=== PATIENT | male | born 1965 | race Caucasian/White ===

== ENCOUNTER 2016-06-14 14:15 | Emergency (ER) | payer BC ==
[2016-06-14] MEDS ORDERED: FAMOTIDINE 20 MG/2 ML VIAL IV STA (15:23)
[2016-06-14] MEDS ORDERED: diphenhydrAMINE 50 MG/ML 1 ML VIAL IVP STA (15:23)
[2016-06-14] MEDS ORDERED: SODIUM CHLORIDE 0.9% 1,000 ML IV STA ×2 (15:23)
[2016-06-14] MEDS ORDERED: RX INFO: IV CONTRAST WAS GIVEN 1 EACH MISC MISCELLANE PRN (15:38)
--- NOTE | 2016-06-14 15:38 | ED ---
General Adult HPI - General Chief complaint: Shortness of Breath Stated complaint: Diff breathing Time Seen by Provider: 06/14/16 15:08 Source: patient, RN notes reviewed Mode of arrival: ambulatory Limitations: no limitations - History of Present Illness Initial comments: 50-year-old male who presents emergency room today with multiple complaints. Patient does admit that he wrote a rash week ago was started on steroids. He does admit to being a diabetic currently on metformin. He states noticed blood sugars been running high last 3 days. Patient also admits that he's had increased cough the last 2 days. He does admit to a history of blood clots. States she's had similar symptoms to cough congestion with blood clots. States currently taking also. States he has had a blood clot while being on blood thinners in the past. Patient also admits to blurry vision over the last 3 days. States that he noticed that he cannot see clearly as he usually does. Patient denies any other complaints. Patient denies any recent fever, chills, back pain, abdominal pain, nausea or vomiting, numbness or tingling, dysuria or hematuria, constipation or diarrhea, headaches or visual changes, or any other complaints. - Related Data Home Medications Medication Instructions Recorded Confirmed Ascorbic Acid [Vitamin C] 500 mg PO DAILY 06/14/16 06/14/16 Cyanocobalamin (Vitamin B-12) 1,000 mcg PO DAILY 06/14/16 06/14/16 [Vitamin B-12] Methylphenidate HCl [Concerta] 72 mg PO DAILY 06/14/16 06/14/16 Rivaroxaban [Xarelto] 20 mg PO DAILY 06/14/16 06/14/16 Venlafaxine HCl [Effexor XR] 75 mg PO DAILY 06/14/16 06/14/16 amLODIPine/VALSARTAN [Exforge 1 tab PO DAILY 06/14/16 06/14/16 10-320 mg Tablet] metFORMIN HCL 1,000 mg PO BID 06/14/16 06/14/16 Previous Rx's Medication Instructions Recorded Hydrocortisone Cream 1 applic TOPICAL TID #1 cream..g. 06/14/16 [Hydrocortisone 1% Cream] Allergies Allergy/AdvReac Type Severity Reaction Status Date / Time No Known Allergies Allergy Verified 06/14/16 15:16 Review of Systems ROS Statement: Those systems with pertinent positive or pertinent negative responses have been documented in the HPI. ROS Other: All systems not noted in ROS Statement are negative. Past Medical History Past Medical History: Diabetes Mellitus Additional Past Medical History / Comment(s): blood clots History of Any Multi-Drug Resistant Organisms: None Reported Past Surgical History: Orthopedic Surgery Past Psychological History: Anxiety, Depression Smoking Status: Never smoker Past Alcohol Use History: None Reported Past Drug Use History: None Reported General Exam - General Exam Comments Initial Comments: General: The patient is awake and alert, in no distress, and does not appear acutely ill. Eye: Pupils are equal, round and reactive to light, extra-ocular movements are intact. No nystagmus. There is normal conjunctiva bilaterally. No signs of icterus. Visual acuity performed by nursing staff and is 20/30 and 20/40. Ears, nose, mouth and throat: There are moist mucous membranes and no oral lesions. Neck: The neck is supple, there is no tenderness or JVD. Cardiovascular: Tachycardic. No murmur, rub or gallop is appreciated. Respiratory: Lungs are clear to auscultation, respirations are non-labored, breath sounds are equal. No wheezes, stridor, rales, or rhonchi. Gastrointestinal: Soft, non-distended, non-tender abdomen without masses or organomegaly noted. There is no rebound or guarding present. No CVA tenderness. Bowel sounds are unremarkable. Musculoskeletal: Normal ROM, no tenderness. Strength 5/5. Sensation intact. Pulses equal bilaterally 2+. Neurological: A&O x 3. CN II-XII intact, There are no obvious motor or sensory deficits. Coordination appears grossly intact. Speech is normal. Skin: Skin is warm and dry and no rashes or lesions are noted. Psychiatric: Cooperative, appropriate mood & affect, normal judgment. Limitations: no limitations Course Vital Signs 06/14/16 06/14/16 14:22 16:36 Temperature 98.6 F Pulse Rate 125 H 101 H Respiratory 20 18 Rate Blood Pressure 140/79 173/98 O2 Sat by Pulse 95 98 Oximetry EKG Findings - EKG Comments: EKG Findings:: EKG performed at 1544: Shows sinus tachycardia 113 bpm. GA interval 140. QRS 96. QT/QTC 330/452. No acute ST changes. Medical Decision Making - Medical Decision Making Patient reexamined at this time shows no signs of distress. His labs are been reviewed. CT of the chest shows no evidence of PE. Does show a ascending aortic aneurysm measuring approximately 4 mm in size. Patient updated of the results. Patient did present with elevated blood sugars. He has been on steroids due to a intact dermatitis. Patient advised that steroids will causes blood sugars to rise. At this time case was discussed in detail with attending physician . Patient will be discharged home he'll be given a prescription for topical steroid to use as well to some these areas as he has had improvement with the oral steroids. Patient is advised follow-up with his family doctor tomorrow for further evaluation of ascending aortic aneurysm. He is advised return to emergency room if any symptoms increase or worsen or for any - Lab Data Result diagrams: 06/14/16 15:41 06/14/16 15:41 Lab Results 06/14/16 06/14/16 06/14/16 Range/Units 15:41 15:41 15:41 WBC 12.6 H (3.8-10.6) k/uL RBC 5.37 (4.30-5.90) m/uL Hgb 15.8 (13.0-17.5) gm/dL Hct 46.8 (39.0-53.0) % MCV 87.0 (80.0-100.0) fL MCH 29.4 (25.0-35.0) pg MCHC 33.8 (31.0-37.0) g/dL RDW 14.1 (11.5-15.5) % Plt Count 415 (150-450) k/uL Neutrophils % 79 % Lymphocytes % 13 % Monocytes % 5 % Eosinophils % 1 % Basophils % 1 % Neutrophils # 9.9 H (1.3-7.7) k/uL Lymphocytes # 1.6 (1.0-4.8) k/uL Monocytes # 0.6 (0-1.0) k/uL Eosinophils # 0.2 (0-0.7) k/uL Basophils # 0.1 (0-0.2) k/uL PT (9.0-12.0) sec INR (<1.1) APTT (22.0-30.0) sec Sodium 139 (137-145) mmol/L Potassium 4.5 (3.5-5.1) mmol/L Chloride 101 (98-107) mmol/L Carbon Dioxide 24 (22-30) mmol/L Anion Gap 14 mmol/L BUN 22 H (9-20) mg/dL Creatinine 0.75 (0.66-1.25) mg/dL Est GFR (MDRD) Af Amer >60 (>60 ml/min/1.73 sqM) Est GFR (MDRD) Non-Af >60 (>60 ml/min/1.73 sqM) Glucose 284 H (74-99) mg/dL Calcium 9.9 (8.4-10.2) mg/dL Total Bilirubin 0.5 (0.2-1.3) mg/dL AST 26 (17-59) U/L ALT 55 (21-72) U/L Alkaline Phosphatase 64 (38-126) U/L Total Creatine Kinase 87 (55-170) U/L CK-MB (CK-2) 1.7 (0.0-2.4) ng/mL CK-MB (CK-2) Rel Index 2.0 Troponin I <0.012 (0.000-0.034) ng/mL Total Protein 7.5 (6.3-8.2) g/dL Albumin 4.4 (3.5-5.0) g/dL Acetone, Qual Negative (Negative) 06/14/16 Range/Units 15:41 WBC (3.8-10.6) k/uL RBC (4.30-5.90) m/uL Hgb (13.0-17.5) gm/dL Hct (39.0-53.0) % MCV (80.0-100.0) fL MCH (25.0-35.0) pg MCHC (31.0-37.0) g/dL RDW (11.5-15.5) % Plt Count (150-450) k/uL Neutrophils % % Lymphocytes % % Monocytes % % Eosinophils % % Basophils % % Neutrophils # (1.3-7.7) k/uL Lymphocytes # (1.0-4.8) k/uL Monocytes # (0-1.0) k/uL Eosinophils # (0-0.7) k/uL Basophils # (0-0.2) k/uL PT 10.5 (9.0-12.0) sec INR 1.0 (<1.1) APTT 24.4 (22.0-30.0) sec Sodium (137-145) mmol/L Potassium (3.5-5.1) mmol/L Chloride (98-107) mmol/L Carbon Dioxide (22-30) mmol/L Anion Gap mmol/L BUN (9-20) mg/dL Creatinine (0.66-1.25) mg/dL Est GFR (MDRD) Af Amer (>60 ml/min/1.73 sqM) Est GFR (MDRD) Non-Af (>60 ml/min/1.73 sqM) Glucose (74-99) mg/dL Calcium (8.4-10.2) mg/dL Total Bilirubin (0.2-1.3) mg/dL AST (17-59) U/L ALT (21-72) U/L Alkaline Phosphatase (38-126) U/L Total Creatine Kinase (55-170) U/L CK-MB (CK-2) (0.0-2.4) ng/mL CK-MB (CK-2) Rel Index Troponin I (0.000-0.034) ng/mL Total Protein (6.3-8.2) g/dL Albumin (3.5-5.0) g/dL Acetone, Qual (Negative) Disposition Clinical Impression: Contact dermatitis, Steroid-induced hyperglycemia, Aortic aneurysm Disposition: HOME SELF-CARE Condition: Good Instructions: Contact Dermatitis (ED) Additional Instructions: Please use Benadryl one to 2 tabs every 6 hours along with previously prescribed medications and topical steroid. Please follow-up with family doctor in the next 2 days for further evaluation of rash and aortic aneurysm as discussed. Please return to emergency room if the symptoms increase or worsen or for any other concerns. Prescriptions: Hydrocortisone Cream [Hydrocortisone 1% Cream] 1 applic TOPICAL TID #1 cream..g. Time of Disposition: 17:55
[2016-06-14 15:53] LABS: Basophils # (A) 0.1 k/uL (0-0.2); Basophils % (A) 1 %; CH 29.6; CHCM 34.2; Eosinophils # (A) 0.2 k/uL (0-0.7); Eosinophils % (A) 1 %; HCT 46.8 % (39.0-53.0); HDW 2.53; HGB 15.8 gm/dL (13.0-17.5); Luc # (Auto) 0.23; Luc % (Auto) 2; Lymphocytes # (A) 1.6 k/uL (1.0-4.8); Lymphocytes % (A) 13 %; MCH 29.4 pg (25.0-35.0); MCHC 33.8 g/dL (31.0-37.0); Mean Platelet Volume 6.3; Monocytes # (A) 0.6 k/uL (0-1.0); Monocytes % (A) 5 %; Neutrophils # (A) 9.9 k/uL (1.3-7.7); Neutrophils % (A) 79 %; RBC 5.37 m/uL (4.30-5.90); RDW 14.1 % (11.5-15.5); WBC 12.6 k/uL (3.8-10.6); WBC (Perox) 12.15
[2016-06-14 16:01] LABS: Partial Thromboplastin Time 24.4 sec (22.0-30.0); Prothrombin Time 10.5 sec (9.0-12.0)
[2016-06-14 16:05] LABS: ALT 55 U/L (21-72); AST 26 U/L (17-59); Alkaline Phosphatase 64 U/L (38-126); Anion Gap 14 mmol/L; Blood Urea Nitrogen 22 mg/dL (9-20); Calcium 9.9 mg/dL (8.4-10.2); Carbon Dioxide 24 mmol/L (22-30); Chloride 101 mmol/L (98-107); Glucose 284 mg/dL (74-99); Non-African American GFR(MDRD) >60 (>60 ml/min/1.73 sqM); Potassium 4.5 mmol/L (3.5-5.1); Sodium 139 mmol/L (137-145); Total Bilirubin 0.5 mg/dL (0.2-1.3); Total Protein 7.5 g/dL (6.3-8.2)
[2016-06-14 16:07] LABS: Creatine Kinase 87 U/L (55-170)
[2016-06-14 16:20] LABS: Creatine Kinase MB 1.7 ng/mL (0.0-2.4); Troponin I <0.012 ng/mL (0.000-0.034)
[2016-06-14 16:37] VITALS: RESP 18
--- NOTE | 2016-06-14 17:29 | CT ---
EXAMINATION TYPE: CT angio chest DATE OF EXAM: 06/14/2016 5:16 PM COMPARISON: CTA chest 14 October 2011 HISTORY: Chest pain and shortness of breath CT DLP: 989 mGycm Automated exposure control for dose reduction was used. CONTRAST: CTA scan of the thorax is performed with IV Contrast, patient injected with 100 mL of Omnipaque 350, pulmonary embolism protocol. MIP images are created and reviewed. 3D reconstructed images are creat ed on an independent workstation and reviewed. FINDINGS: LUNGS: The lungs are grossly clear, there is no concerning parenchymal mass or nodule identified. T here is no pleural effusion or pneumothorax seen. The tracheobronchial tree is patent. AORTA: Ascending aorta measures 4 cm, pulmonary arteries dilated at 3.6 cm. Correlate for pulmonary artery hypertension, follow-up aortic aneurysm recommended. MEDIASTINUM: There is satisfactory enhancement of the pulmonary artery and its branches, there is no CT evidence for pulmonary embolism. There are no greater than 1 cm hilar or mediastinal lymph nodes. No pericardial effusion is seen. OTHER: No additional significant abnormality is seen. IMPRESSION: AORTIC ANEURYSM, CONSIDER PULMONARY ARTERY HYPERTENSION
[2016-06-14 18:23] VITALS: BP 142/95; PULSE 66; TEMP 97.8
[2016-06-14 21:51] LABS: Glucose,Whole Blood 322 mg/dL (75-99)
== END 2016-06-14 17:57 | disposition home or self-care (01) ==
LOC: EC 14:15
DX: L25.9 Unspecified contact dermatitis, unspecified cause (principal); E09.65 Drug or chemical induced diabetes mellitus with hyperglycemia; Z79.84 Long term (current) use of oral hypoglycemic drugs; I71.2 Thoracic aortic aneurysm, without rupture; R05 Cough; R09.81 Nasal congestion; H53.8 Other visual disturbances; F32.9 Major depressive disorder, single episode, unspecified; F41.9 Anxiety disorder, unspecified; Z79.899 Other long term (current) drug therapy
CPT/HCPCS: 36415; 93005; 80053; 82550; 82553; 82009; 84484; 85025; 85610; 85730; 71275; 99285; 96374; 96375; 96361; J1200; Q9967

== ENCOUNTER 2021-08-15 12:55 | Emergency (ER) | payer MEDICARE ==
[2021-08-15 13:10] VITALS: BP 127/71; PULSE 80; RESP 16; TEMP 98
[2021-08-15] MEDS ORDERED: SODIUM CHLORIDE 0.9% 1,000 ML IV STA (13:24)
--- NOTE | 2021-08-15 13:28 | ED ---
General Adult HPI - General Chief complaint: Dizziness Stated complaint: Lightheadedness Time Seen by Provider: 08/15/21 13:19 Source: patient, RN notes reviewed Mode of arrival: ambulatory Limitations: no limitations - History of Present Illness Initial comments: Patient is a pleasant 55-year-old male presenting to the emergency department with lightheadedness. 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 Patient was not drinking a lot of fluids at that time. Patient was a little bit lightheaded afterwards and did drink some water afterwards. This morning patient did have an episode where he bent over he felt dizzy. Patient states he has not had any symptoms since that time. Patient states he is actually feeling fine at this time. No confusion. No weakness. No history of similar symptoms previously. Patient offered medication for dizziness however he does not feel that it is necessary. - Related Data Home Medications Medication Instructions Recorded Confirmed Rivaroxaban [Xarelto] 20 mg PO DAILY 06/14/16 10/31/19 Dulaglutide [Trulicity] 1.5 mg SQ TOUSSAINT 10/31/19 10/31/19 Escitalopram [Lexapro] 20 mg PO DAILY 10/31/19 10/31/19 Insulin Degludec [Tresiba 64 unit SQ HS 10/31/19 10/31/19 Flextouch U-200 Pen] Olmesartan/Hydrochlorothiazide 1 tab PO HS 10/31/19 10/31/19 [Olmesartan/Hydrochlorothiazide 40-25 MG] amLODIPine [Norvasc] 10 mg PO HS 10/31/19 10/31/19 Previous Rx's Medication Instructions Recorded Aspirin 81 mg PO DAILY #30 chew 11/02/19 Atorvastatin [Lipitor] 40 mg PO HS #30 tablet 11/02/19 Clopidogrel [Plavix] 75 mg PO DAILY #20 tab 11/02/19 Allergies Allergy/AdvReac Type Severity Reaction Status Date / Time No Known Allergies Allergy Verified 08/15/21 13:08 Review of Systems ROS Statement: Those systems with pertinent positive or pertinent negative responses have been documented in the HPI. ROS Other: All systems not noted in ROS Statement are negative. Constitutional: Denies: fever Eyes: Denies: eye pain ENT: Denies: ear pain Respiratory: Denies: cough, dyspnea Cardiovascular: Denies: chest pain Endocrine: Denies: fatigue Gastrointestinal: Denies: abdominal pain Genitourinary: Denies: dysuria Musculoskeletal: Denies: back pain Skin: Denies: rash Neurological: Denies: headache, weakness, confusion Past Medical History Past Medical History: Diabetes Mellitus, Deep Vein Thrombosis (DVT), Pulmonary Embolus (PE) Additional Past Medical History / Comment(s): blood clots History of Any Multi-Drug Resistant Organisms: None Reported Past Surgical History: Orthopedic Surgery Additional Past Surgical History / Comment(s): L ankle fractures/fusion, R heel shattered/fused, colonoscopy. Past Anesthesia/Blood Transfusion Reactions: No Reported Reaction Additional Past Anesthesia/Blood Transfusion Reaction / Comment(s): Pt has clausterphobia. Past Psychological History: Anxiety, Depression Smoking Status: Never smoker Past Alcohol Use History: None Reported Past Drug Use History: None Reported - Past Family History Father History Unknown: Yes Additional Family Medical History / Comment(s): Pt does not know father's hx-raised by grandparents. Mother History Unknown: Yes Additional Family Medical History / Comment(s): Pt does not know mother's hx- raised by grandparents. Grandparents Family Medical History: No Reported History Additional Family Medical History / Comment(s): Grandparents were healthy General Exam Limitations: no limitations General appearance: alert, in no apparent distress Head exam: Present: normocephalic Eye exam: Present: normal appearance, PERRL, EOMI ENT exam: Present: normal oropharynx Neck exam: Present: normal inspection Respiratory exam: Present: normal lung sounds bilaterally Cardiovascular Exam: Present: regular rate, normal rhythm Expanded Peripheral pulses: 2+: Radial (R), Radial (L), Posterior Tibialis (R), Posterior Tibialis (L) GI/Abdominal exam: Present: soft. Absent: tenderness Extremities exam: Present: normal inspection. Absent: pedal edema, calf tenderness Neurological exam: Present: alert, oriented X3, CN II-XII intact. Absent: motor sensory deficit Psychiatric exam: Present: normal affect, normal mood Skin exam: Present: normal color Course Vital Signs 08/15/21 13:08 Temperature 98 F Pulse Rate 80 Respiratory 16 Rate Blood Pressure 127/71 O2 Sat by Pulse 98 Oximetry EKG Findings - EKG Comments: EKG Findings:: Sinus bradycardia 59. SC 173. QRS 124. QT 434. QTC 433. Left axis. Normal QRS. No acute ST change. Medical Decision Making - Medical Decision Making Patient reevaluated and resting comfortably in bed, patient remained symptom- free. Patient family updated on results and plan. Patient will demonstrate ability to ambulate without symptoms prior to discharge - Lab Data Result diagrams: 08/15/21 13:14 08/15/21 13:14 Lab Results 08/15/21 08/15/21 08/15/21 Range/Units 13:14 13:14 13:14 WBC 7.1 (3.8-10.6) k/uL RBC 4.74 (4.30-5.90) m/uL Hgb 13.9 (13.0-17.5) gm/dL Hct 41.8 (39.0-53.0) % MCV 88.3 (80.0-100.0) fL MCH 29.4 (25.0-35.0) pg MCHC 33.3 (31.0-37.0) g/dL RDW 13.0 (11.5-15.5) % Plt Count 310 (150-450) k/uL MPV 7.0 Neutrophils % 64 % Lymphocytes % 23 % Monocytes % 6 % Eosinophils % 3 % Basophils % 1 % Neutrophils # 4.6 (1.3-7.7) k/uL Lymphocytes # 1.6 (1.0-4.8) k/uL Monocytes # 0.4 (0-1.0) k/uL Eosinophils # 0.2 (0-0.7) k/uL Basophils # 0.1 (0-0.2) k/uL PT 12.8 H (9.0-12.0) sec INR 1.2 H (<1.2) Sodium 139 (137-145) mmol/L Potassium 4.3 (3.5-5.1) mmol/L Chloride 104 (98-107) mmol/L Carbon Dioxide 26 (22-30) mmol/L Anion Gap 9 mmol/L BUN 24 H (9-20) mg/dL Creatinine 0.96 (0.66-1.25) mg/dL Est GFR (CKD-EPI)AfAm >90 (>60 ml/min/1.73 sqM) Est GFR (CKD-EPI)NonAf 88 (>60 ml/min/1.73 sqM) Glucose 184 H (74-99) mg/dL Plasma Lactic Acid Tesfaye (0.7-2.0) mmol/L Calcium 9.0 (8.4-10.2) mg/dL Total Bilirubin 0.7 (0.2-1.3) mg/dL AST 52 (17-59) U/L ALT 52 H (4-49) U/L Alkaline Phosphatase 54 (38-126) U/L Troponin I (0.000-0.034) ng/mL Total Protein 7.4 (6.3-8.2) g/dL Albumin 4.3 (3.5-5.0) g/dL 08/15/21 08/15/21 Range/Units 13:14 13:14 WBC (3.8-10.6) k/uL RBC (4.30-5.90) m/uL Hgb (13.0-17.5) gm/dL Hct (39.0-53.0) % MCV (80.0-100.0) fL MCH (25.0-35.0) pg MCHC (31.0-37.0) g/dL RDW (11.5-15.5) % Plt Count (150-450) k/uL MPV Neutrophils % % Lymphocytes % % Monocytes % % Eosinophils % % Basophils % % Neutrophils # (1.3-7.7) k/uL Lymphocytes # (1.0-4.8) k/uL Monocytes # (0-1.0) k/uL Eosinophils # (0-0.7) k/uL Basophils # (0-0.2) k/uL PT (9.0-12.0) sec INR (<1.2) Sodium (137-145) mmol/L Potassium (3.5-5.1) mmol/L Chloride (98-107) mmol/L Carbon Dioxide (22-30) mmol/L Anion Gap mmol/L BUN (9-20) mg/dL Creatinine (0.66-1.25) mg/dL Est GFR (CKD-EPI)AfAm (>60 ml/min/1.73 sqM) Est GFR (CKD-EPI)NonAf (>60 ml/min/1.73 sqM) Glucose (74-99) mg/dL Plasma Lactic Acid Tesfaye 1.5 (0.7-2.0) mmol/L Calcium (8.4-10.2) mg/dL Total Bilirubin (0.2-1.3) mg/dL AST (17-59) U/L ALT (4-49) U/L Alkaline Phosphatase (38-126) U/L Troponin I <0.012 (0.000-0.034) ng/mL Total Protein (6.3-8.2) g/dL Albumin (3.5-5.0) g/dL Disposition Clinical Impression: Dehydration Disposition: HOME SELF-CARE Condition: Stable Instructions (If sedation given, give patient instructions): Dizziness (ED), Dehydration (ED) Additional Instructions: Continue oral hydration. Please follow-up with primary care physician in the next couple days for recheck. Return for lightheadedness, weakness, worsening or changing symptoms or other concerns. Is patient prescribed a controlled substance at d/c from ED?: No Referrals: Farnaz Luo DO [Primary Care Provider] - 1-2 days Time of Disposition: 14:47
[2021-08-15 13:48] LABS: Basophils # (A) 0.1 k/uL (0-0.2); Basophils % (A) 1 %; Eosinophils # (A) 0.2 k/uL (0-0.7); Eosinophils % (A) 3 %; HCT 41.8 % (39.0-53.0); HGB 13.9 gm/dL (13.0-17.5); Lymphocytes # (A) 1.6 k/uL (1.0-4.8); Lymphocytes % (A) 23 %; MCH 29.4 pg (25.0-35.0); MCHC 33.3 g/dL (31.0-37.0); MCV 88.3 fL (80.0-100.0); Monocytes # (A) 0.4 k/uL (0-1.0); Monocytes % (A) 6 %; Neutrophils # (A) 4.6 k/uL (1.3-7.7); Neutrophils % (A) 64 %; Platelet Count 310 k/uL (150-450); RBC 4.74 m/uL (4.30-5.90); WBC 7.1 k/uL (3.8-10.6)
[2021-08-15 13:54] LABS: INR 1.2 (<1.2); Prothrombin Time 12.8 sec (9.0-12.0)
[2021-08-15 14:03] LABS: ALT 52 U/L (4-49); AST 52 U/L (17-59); African American GFR (CKD) >90 (>60 ml/min/1.73 sqM); Albumin 4.3 g/dL (3.5-5.0); Alkaline Phosphatase 54 U/L (38-126); Anion Gap 9 mmol/L; Blood Urea Nitrogen 24 mg/dL (9-20); Carbon Dioxide 26 mmol/L (22-30); Chloride 104 mmol/L (98-107); Glucose 184 mg/dL (74-99); Non-African American GFR(CKD) 88 (>60 ml/min/1.73 sqM); Potassium 4.3 mmol/L (3.5-5.1); Sodium 139 mmol/L (137-145); Total Bilirubin 0.7 mg/dL (0.2-1.3); Total Protein 7.4 g/dL (6.3-8.2)
== END 2021-08-15 15:04 | disposition home or self-care (01) ==
LOC: EC 12:55
DX: E86.0 Dehydration (principal); E11.9 Type 2 diabetes mellitus without complications; Z86.73 Personal history of transient ischemic attack (TIA), and cerebral infarction without residual deficits
CPT/HCPCS: 36415; 80053; 83605; 84484; 85025; 85610; 93005; 96360; 99285

== ENCOUNTER 2021-11-22 19:08 | Observation (INO) | payer MEDICARE ==
[2021-11-22] MEDS ORDERED: RX INFO: IV CONTRAST WAS GIVEN 1 EACH MISC MISCELLANE PRN (21:49)
[2021-11-22 22:24] LABS: Basophils # (A) 0.1 k/uL (0-0.2); Basophils % (A) 1 %; Eosinophils # (A) 0.3 k/uL (0-0.7); Eosinophils % (A) 3 %; HCT 42.4 % (39.0-53.0); HGB 14.6 gm/dL (13.0-17.5); Lymphocytes # (A) 2.3 k/uL (1.0-4.8); Lymphocytes % (A) 25 %; MCH 29.9 pg (25.0-35.0); MCHC 34.3 g/dL (31.0-37.0); MCV 87.1 fL (80.0-100.0); Mean Platelet Volume 7.1; Monocytes # (A) 0.5 k/uL (0-1.0); Monocytes % (A) 6 %; Neutrophils # (A) 5.7 k/uL (1.3-7.7); Neutrophils % (A) 64 %; Platelet Count 277 k/uL (150-450); RBC 4.86 m/uL (4.30-5.90)
[2021-11-22] MEDS ORDERED: MORPHINE SULFATE 4 MG/ML SYRINGE IVP STA ×2 (22:34→23:51)
[2021-11-22 22:37] LABS: ALT 58 U/L (4-49); AST 52 U/L (17-59); African American GFR (CKD) >90 (>60 ml/min/1.73 sqM); Albumin 4.3 g/dL (3.5-5.0); Alkaline Phosphatase 57 U/L (38-126); Anion Gap 14 mmol/L; Blood Urea Nitrogen 15 mg/dL (9-20); Calcium 8.9 mg/dL (8.4-10.2); Carbon Dioxide 23 mmol/L (22-30); Chloride 101 mmol/L (98-107); Glucose 242 mg/dL (74-99); Lipase 87 U/L (23-300); Magnesium 1.8 mg/dL (1.6-2.3); Non-African American GFR(CKD) >90 (>60 ml/min/1.73 sqM); Potassium 3.8 mmol/L (3.5-5.1); Sodium 138 mmol/L (137-145); Total Bilirubin 0.4 mg/dL (0.2-1.3); Total Protein 6.8 g/dL (6.3-8.2)
[2021-11-22 22:38] LABS: Partial Thromboplastin Time 27.4 sec (22.0-30.0); Prothrombin Time 11.2 sec (9.0-12.0)
--- NOTE | 2021-11-22 22:40 | ED ---
Chest Pain HPI - General Chief Complaint: Chest Pain Stated Complaint: chest pain, history of blood clot Time Seen by Provider: 11/22/21 21:30 Source: patient Mode of arrival: ambulatory Limitations: no limitations - History of Present Illness Initial Comments: 56-year-old male past history of diabetes, DVT, PE presents to emergency department with chest pain. States the pain started earlier this week. Located over the right chest wall. States it's worse with inspiration. Pain radiates into his right arm. Denies to me that the pain is reproducible with movement. Denies any trauma. He is right-hand dominant. He denies any neck pain. No numbness, tingling or weakness in his arm. He does have a history of stroke without residual deficits. Also has history of DVT and PE. He is on anticoagulation and states he has been taking his medications as directed without any missed doses. No increasing calf pain or swelling. No fevers, chills or cough. Denies cardiac history or cardiac workup. No other alleviating, precipitating or modifying factors - Related Data Home Medications Medication Instructions Recorded Confirmed Rivaroxaban [Xarelto] 20 mg PO DAILY 06/14/16 11/23/21 Escitalopram [Lexapro] 20 mg PO DAILY 10/31/19 11/23/21 Insulin Degludec [Tresiba 70 unit SQ HS 10/31/19 11/23/21 Flextouch U-200 Pen] Olmesartan/Hydrochlorothiazide 1 tab PO HS 10/31/19 11/23/21 [Olmesartan/Hydrochlorothiazide 40-25 MG] amLODIPine [Norvasc] 10 mg PO HS 10/31/19 11/23/21 Adapalene [Adapalene 0.1% Cream] 1 applic TOPICAL HS PRN 11/23/21 11/23/21 Multivitamins, Thera [Multivitamin 1 tab PO DAILY 11/23/21 11/23/21 (formulary)] Rosuvastatin [Crestor] 20 mg PO DAILY 11/23/21 11/23/21 Semaglutide [Ozempic] 1 mg SQ TOUSSAINT 11/23/21 11/23/21 Allergies Allergy/AdvReac Type Severity Reaction Status Date / Time No Known Allergies Allergy Verified 11/23/21 13:08 Review of Systems ROS Statement: Those systems with pertinent positive or pertinent negative responses have been documented in the HPI. ROS Other: All systems not noted in ROS Statement are negative. EKG Findings - EKG Comments: EKG Findings:: EKG demonstrates sinus rhythm with a rate of 95. MA 177. QRS 112. Qtc 424. no st segment elevation or depression. Past Medical History Past Medical History: Diabetes Mellitus, Deep Vein Thrombosis (DVT), Pulmonary Embolus (PE) Additional Past Medical History / Comment(s): blood clots History of Any Multi-Drug Resistant Organisms: None Reported Past Surgical History: Orthopedic Surgery Additional Past Surgical History / Comment(s): L ankle fractures/fusion, R heel shattered/fused, colonoscopy. Past Anesthesia/Blood Transfusion Reactions: No Reported Reaction Additional Past Anesthesia/Blood Transfusion Reaction / Comment(s): Pt has clausterphobia. Past Psychological History: Anxiety, Depression Smoking Status: Never smoker Past Alcohol Use History: None Reported Past Drug Use History: None Reported - Past Family History Father History Unknown: Yes Additional Family Medical History / Comment(s): Pt does not know father's hx- raised by grandparents. Mother History Unknown: Yes Additional Family Medical History / Comment(s): Pt does not know mother's hx- raised by grandparents. Grandparents Family Medical History: No Reported History Additional Family Medical History / Comment(s): Grandparents were healthy General Exam Limitations: no limitations General appearance: alert, in no apparent distress Head exam: Present: atraumatic, normocephalic, normal inspection Eye exam: Present: normal appearance, PERRL, EOMI. Absent: scleral icterus, conjunctival injection, periorbital swelling ENT exam: Present: normal exam, mucous membranes moist Neck exam: Present: normal inspection. Absent: tenderness, meningismus, lymphadenopathy Respiratory exam: Present: normal lung sounds bilaterally. Absent: respiratory distress, wheezes, rales, rhonchi, stridor Cardiovascular Exam: Present: regular rate, normal rhythm, normal heart sounds. Absent: systolic murmur, diastolic murmur, rubs, gallop, clicks GI/Abdominal exam: Present: soft, normal bowel sounds. Absent: distended, tenderness, guarding, rebound, rigid Extremities exam: Present: normal inspection, full ROM, normal capillary refill. Absent: tenderness, pedal edema, joint swelling, calf tenderness Back exam: Present: normal inspection Neurological exam: Present: alert, oriented X3, CN II-XII intact Psychiatric exam: Present: normal affect, normal mood Skin exam: Present: warm, dry, intact, normal color. Absent: rash Course Vital Signs 11/22/21 11/23/21 11/23/21 19:26 03:35 07:52 Temperature 98.4 F 98.2 F Pulse Rate 99 59 L 74 Respiratory 20 16 18 Rate Blood Pressure 139/75 104/71 128/83 O2 Sat by Pulse 98 98 98 Oximetry 11/23/21 11/23/21 12:00 17:43 Temperature 97.6 F Pulse Rate 71 80 Respiratory 19 19 Rate Blood Pressure 132/75 146/86 O2 Sat by Pulse 97 98 Oximetry Chest Pain MDM - MDM Upon arrival patient is placed in room 6. There are history of physical exam was performed. The patient is hooked on continuous pulse ox and cardiac monitoring. 12-lead EKG is obtained. Laboratory studies are conducted and reviewed. Patient does go for CT of his chest as he is not a low-risk candidate. CT fails demonstrate PE. Laboratory studies within normal limits. Troponin negative. Patient is given a dose of pain medications and reports to continue pain. Aspirin administered. Patient will be admitted for cardiology consultation. Spoke with Dr. Love who agreed to admit the patient Disposition Clinical Impression: Chest pain, Exertional dyspnea Disposition: ADMITTED IP TO THIS [facility] Condition: Stable Is patient prescribed a controlled substance at d/c from ED?: No Time of Disposition: 23:55 Decision to Admit Reason: Admit from EC Decision Date: 11/22/21 Decision Time: 23:55
--- NOTE | 2021-11-22 23:25 | CT ---
EXAMINATION TYPE: CT chest angio for PE DATE OF EXAM: 11/22/2021 COMPARISON: 06/14/2016 HISTORY: Chest pain. SOB. Hx of PE. Rt arm pain. CT DLP: 961.7 mGycm Automated exposure control for dose reduction was used. CONTRAST: Performed with IV Contrast, patient injected with 100cc mL of Isovue 370. Images obtained from the thoracic inlet to the diaphragm with the IV contrast. There are Three-D post processed images. The lungs are clear of infiltrate. No pleural effusion. Heart size is normal. No pericardial effusion . There is no mediastinal adenopathy. There are no hilar masses. Thoracic aorta is intact. No aneurysm. There is normal contrast opacification of the pulmonary arteries. No filling defect. The thoracic spi ne is intact. IMPRESSION: Negative exam. No evidence of pulmonary embolism. No suspicious pulmonary mass. No adverse change.
[2021-11-22] MEDS ORDERED: MORPHINE SULFATE 4 MG/ML SYRINGE IV PRN (23:55)
[2021-11-22] MEDS ORDERED: NALOXONE 0.4 MG/ML 1 ML VIAL IV PRN (23:55)
[2021-11-22] MEDS ORDERED: ASPIRIN 81 MG PO STA (23:58)
--- NOTE | 2021-11-23 04:01 | P.HPIM ---
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 Patient comes in for evaluation of sudden onset right-sided chest pain. He reports that all started as right shoulder pain about 4 days ago that gets better with certain positioning of his arm usually involves elevating his arm a little bit. However today while at work he suddenly experienced right-sided chest pain with worsening of his right shoulder pain not associated with any nausea vomiting denies any profuse sweating palpitations or shortness of breath he describes the pain as sharp which reminded him of his multiple blood clots that he got about 10 years ago as he had similar presentation of severe pain in his right shoulder. He grew concerned and decided to come into the hospital for evaluation denies any recent hospital stay or prolonged travel. Denies any changes in his medications. He claims to be compliant with his blood thinners. Denies any GI bleeding. Patient denies tobacco smoking, illicit drugs, or heavy alcohol consumption Workup in the ED including CT angiogram of the chest was negative for acute PE Review of Systems Pertinent positives as noted in HPI. All other systems were reviewed and are negative Past Medical History Past Medical History: Diabetes Mellitus, Deep Vein Thrombosis (DVT), Pulmonary Embolus (PE) Additional Past Medical History / Comment(s): blood clots History of Any Multi-Drug Resistant Organisms: None Reported Past Surgical History: Orthopedic Surgery Additional Past Surgical History / Comment(s): L ankle fractures/fusion, R heel shattered/fused, colonoscopy. Past Anesthesia/Blood Transfusion Reactions: No Reported Reaction Additional Past Anesthesia/Blood Transfusion Reaction / Comment(s): Pt has clausterphobia. Past Psychological History: Anxiety, Depression Smoking Status: Never smoker Past Alcohol Use History: None Reported Past Drug Use History: None Reported - Past Family History Father History Unknown: Yes Additional Family Medical History / Comment(s): Pt does not know father's hx- raised by grandparents. Mother History Unknown: Yes Additional Family Medical History / Comment(s): Pt does not know mother's hx- raised by grandparents. Grandparents Family Medical History: No Reported History Additional Family Medical History / Comment(s): Grandparents were healthy Medications and Allergies Home Medications Medication Instructions Recorded Confirmed Type Rivaroxaban [Xarelto] 20 mg PO DAILY 06/14/16 10/31/19 History Dulaglutide [Trulicity] 1.5 mg SQ TOUSSAINT 10/31/19 10/31/19 History Escitalopram [Lexapro] 20 mg PO DAILY 10/31/19 10/31/19 History Insulin Degludec [Tresiba 64 unit SQ HS 10/31/19 10/31/19 History Flextouch U-200 Pen] Olmesartan/Hydrochlorothiazide 1 tab PO HS 10/31/19 10/31/19 History [Olmesartan/Hydrochlorothiazide 40-25 MG] amLODIPine [Norvasc] 10 mg PO HS 10/31/19 10/31/19 History Aspirin 81 mg PO DAILY #30 chew 11/02/19 Rx Atorvastatin [Lipitor] 40 mg PO HS #30 tablet 11/02/19 Rx Clopidogrel [Plavix] 75 mg PO DAILY #20 tab 11/02/19 Rx Allergies Allergy/AdvReac Type Severity Reaction Status Date / Time No Known Allergies Allergy Verified 08/15/21 13:08 Physical Exam Vitals: Vital Signs Temp Pulse Resp BP Pulse Ox 11/22/21 19:26 98.4 F 99 20 139/75 98 Intake and Output 11/22/21 11/22/21 11/23/21 14:59 22:59 06:59 Other: Weight 150.593 kg Constitutional: No acute distress, conversant, pleasant Eyes: Anicteric sclerae, moist conjunctiva, Pupils equal round reactive to light ENMT: NC/AT Oropharynx clear, no erythema, or exudates Neck: Supple, no masses, or JVD No carotid bruits No thyromegaly Lungs: Clear to auscultation Clear to percussion Normal respiratory effort, no accessory muscle use Cardiovascular: Heart regular in rate and rhythm, No murmurs, gallops, or rubs No peripheral edema Abdominal: Soft Nontender, no guarding, rebound or rigidity Abdomen moving with respiration Normoactive bowel sounds No hepatomegaly, No splenomegaly No palpable mass No abdominal wall hernia noted Skin: Normal temperature, tone, texture, turgor No induration No subcutaneous nodules No rash, lesions No ulcers Extremities: No digital cyanosis No clubbing Pedal pulses intact and symmetrical Radial pulses intact and symmetrical No calf tenderness Psychiatric: Alert and oriented to person, place and time Appropriate affect fair judgement Neuro Muscles Strength 5/5 in all 4 extremities Sensation to light touch grossly present throughout Cranial nerves II-XII grossly intact No focal sensory deficits Lymphatics: no palpable cervical or supraclavicular , or inguinal lymph nodes Results CBC & Chem 7: 11/22/21 22:11 11/22/21 22:11 Labs: Abnormal Lab Results - Last 24 Hours (Table) 11/22/21 Range/Units 22:11 Glucose 242 H (74-99) mg/dL ALT 58 H (4-49) U/L Assessment and Plan Assessment: atypical chest pain rule out ACS EKG no acute changes CXR no acute pathology trops negative 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
[2021-11-23 04:48] LABS: African American GFR (CKD) >90 (>60 ml/min/1.73 sqM); Anion Gap 11 mmol/L; Basophils % (A) 1 %; Blood Urea Nitrogen 13 mg/dL (9-20); Calcium 8.6 mg/dL (8.4-10.2); Carbon Dioxide 27 mmol/L (22-30); Chloride 101 mmol/L (98-107); Eosinophils # (A) 0.3 k/uL (0-0.7); Eosinophils % (A) 4 %; Glucose 131 mg/dL (74-99); HCT 41.7 % (39.0-53.0); HGB 14.3 gm/dL (13.0-17.5); Lymphocytes # (A) 2.2 k/uL (1.0-4.8); Lymphocytes % (A) 29 %; MCH 29.9 pg (25.0-35.0); MCHC 34.2 g/dL (31.0-37.0); MCV 87.7 fL (80.0-100.0); Mean Platelet Volume 7.2; Monocytes # (A) 0.6 k/uL (0-1.0); Monocytes % (A) 7 %; Neutrophils # (A) 4.4 k/uL (1.3-7.7); Neutrophils % (A) 57 %; Non-African American GFR(CKD) >90 (>60 ml/min/1.73 sqM); Platelet Count 266 k/uL (150-450); Potassium 4.1 mmol/L (3.5-5.1); RBC 4.76 m/uL (4.30-5.90); Sodium 139 mmol/L (137-145); WBC 7.7 k/uL (3.8-10.6)
[2021-11-23 07:39] LABS: Glucose,Whole Blood 169 mg/dL (70-110)
[2021-11-23] MEDS: INSULIN ASPART (NovoLOG) 100 UNIT/ML VIAL SQ SCH ×2 (07:44→12:43)
[2021-11-23] MEDS ORDERED: ASPIRIN 81 MG PO SCH (09:00)
[2021-11-23] MEDS ORDERED: CLOPIDOGREL 75 MG TAB PO SCH (09:00)
[2021-11-23] MEDS ORDERED: RIVAROXABAN 20 MG TAB PO SCH (09:00)
[2021-11-23 11:59] LABS: Glucose,Whole Blood 138 mg/dL (70-110)
[2021-11-23 12:02] VITALS: RESP 19
--- NOTE | 2021-11-23 13:52 | P.PN ---
Subjective Progress Note Date: 11/23/21 Patient was seen at the site no acute events overnight. He reports that his chest pain resolved. Objective - Vital Signs Vital signs: Vital Signs Temp 98.2 F 11/23/21 07:52 Pulse 71 11/23/21 12:00 Resp 19 11/23/21 12:00 BP 132/75 11/23/21 12:00 Pulse Ox 97 11/23/21 12:00 FiO2 Intake & Output 11/22/21 11/23/21 11/23/21 18:59 06:59 18:59 Weight 150.593 kg - Exam General: [non toxic], [no distress], [appears at stated age] Derm: [warm], [dry] Head: [atraumatic], [normocephalic], [symmetric] Eyes: [EOMI], [no lid lag], [anicteric sclera] Mouth: [no lip lesion], [mucus membranes moist] Cardiovascular: [S1S2 reg], [no murmur], [positive posterior tibial pulse bilateral], Lungs: [CTA bilateral], [no rhonchi, no rales] , [no accessory muscle use] Abdominal: [soft], [ nontender to palpation], [no guarding], [no appreciable organomegaly] Ext: [no gross muscle atrophy], [no edema], [no contractures] Neuro: [ CN II-XI grossly intact], [no focal neuro deficits] Psych: [Alert], [oriented], [appropriate affect] - Labs CBC & Chem 7: 11/23/21 04:10 11/23/21 04:10 Labs: Abnormal Lab Results - Last 24 Hours (Table) 11/22/21 11/23/21 11/23/21 Range/Units 22:11 04:10 07:37 Glucose 242 H 131 H (74-99) mg/dL POC Glucose (mg/dL) 169 H (70-110) mg/dL ALT 58 H (4-49) U/L 11/23/21 Range/Units 11:57 Glucose (74-99) mg/dL POC Glucose (mg/dL) 138 H (70-110) mg/dL ALT (4-49) U/L Assessment and Plan Assessment: Atypical chest pain likely musculoskeletal in nature EKG no acute changes CXR no acute pathology trops negative X2 patient monitor monitor vital signs ASA, statin , Plavix cardiology consult A1c, lipid panel , TSH pain control Pain control with opiates when necessary Diabetes mellitus Insulin sliding scale Hypertension Resume home blood pressure medications DVT prophylaxis patient on Xarelto for history of venous thrombus involves and Full code
--- NOTE | 2021-11-23 14:06 | P.CRDCN ---
History of Present Illness Consult date: 11/23/21 Consult reason: chest pain History of present illness: This is Chan Duran NP, I'm dictating on behalf of Dr. Reynoso's H&P and A&P The patient was interviewed and examined. HPI: Patient is a pleasant 56-year-old male whom we were consulted on for complaints of chest pain. Patient reports that he has had right arm pain for approximately 3 days, but yesterday he states it radiated into his right chest. He states that he has had a stroke in the past, and this pain made him nervous and he thought he was having another one so that brought him to the hospital for evaluation. Patient states he's also had a history of pulmonary embolism. Patient had an EKG completed in the emergency department that was relatively normal. Patient had a CT angiogram of the chest which demonstrated no pulmonary embolism. Patient's laboratory studies were relatively within normal limits, and his troponins were negative. Patient has a past medical history significant for diabetes, DVT, pulmonary embolism, and stroke. At the time of her exam the patient was still complaining of right arm pain, however the radiation to the chest is gone. He is currently denying shortness of breath, heart palpitations, dizziness, and lightheadedness. ROS: [No fever, chills, or rigors] [no cough, phlegm, or expectoration] [no nausea, vomiting, or diarrhea] [no hematuria, dysuria] [no musculoskelatal complaints] [no strokes or seizures] [no skin lesions] EXAMINATION: GENERAL: Well-appearing, well-nourished and in no acute distress. NECK: Supple without JVD or thyromegaly. LUNGS: Breath sounds clear to auscultation bilaterally. Respiration equal and unlabored. No wheezes, rales or rhonchi. HEART: Regular rate and rhythm without murmurs, rubs or gallops. S1 and S2 heard. EXTREMITIES: Normal range of motion, no edema. No clubbing or cyanosis. Per ipheral pulses intact and strong. REVIEW OF LABS, ECG & MEDICAL DATA: LABS: White count 7.7, hemoglobin 14.3, platelets 266, sodium 139, potassium 4.1, B1 13, creatinine 0.0, calcium 8.6, serial troponins 3-less than 0.012, BNP 22 EKG: Normal sinus rhythm IMAGING: CT angiogram of the chest dated 11/22/2021 demonstrates negative exam. No evidence of pulmonary embolism. No suspicious pulmonary mass. No adverse change. VITALS: Temp 98.2, pulse 74, respirations 18, blood pressure 120/83, O2 s aturation 98% on room air IMPRESSION: 1. Right arm pain, likely musculoskeletal in nature 2. Diabetes mellitus 3. History pulmonary embolism 4. History stroke PLAN: Check hemoglobin A1c and lipid panel Patient has not had a myocardial infarction, chest pain is likely secondary to musculoskeletal issue Patient may follow-up with Dr. Reynoso for outpatient evaluation and outpatient stress test No further cardiac testing necessary Further management by the medical team Thank you for the consult and allowing us to participate in the care of this patient. Past Medical History Past Medical History: Diabetes Mellitus, Deep Vein Thrombosis (DVT), Pulmonary Embolus (PE) Additional Past Medical History / Comment(s): blood clots History of Any Multi-Drug Resistant Organisms: None Reported Past Surgical History: Orthopedic Surgery Additional Past Surgical History / Comment(s): L ankle fractures/fusion, R heel shattered/fused, colonoscopy. Past Anesthesia/Blood Transfusion Reactions: No Reported Reaction Additional Past Anesthesia/Blood Transfusion Reaction / Comment(s): Pt has clausterphobia. Past Psychological History: Anxiety, Depression Smoking Status: Never smoker Past Alcohol Use History: None Reported Past Drug Use History: None Reported - Past Family History Father History Unknown: Yes Additional Family Medical History / Comment(s): Pt does not know father's hx- raised by grandparents. Mother History Unknown: Yes Additional Family Medical History / Comment(s): Pt does not know mother's hx- raised by grandparents. Grandparents Family Medical History: No Reported History Additional Family Medical History / Comment(s): Grandparents were healthy Medications and Allergies Home Medications Medication Instructions Recorded Confirmed Type Rivaroxaban [Xarelto] 20 mg PO DAILY 06/14/16 11/23/21 History Escitalopram [Lexapro] 20 mg PO DAILY 10/31/19 11/23/21 History Insulin Degludec [Tresiba 70 unit SQ HS 10/31/19 11/23/21 History Flextouch U-200 Pen] Olmesartan/Hydrochlorothiazide 1 tab PO HS 10/31/19 11/23/21 History [Olmesartan/Hydrochlorothiazide 40-25 MG] amLODIPine [Norvasc] 10 mg PO HS 10/31/19 11/23/21 History Adapalene [Adapalene 0.1% Cream] 1 applic TOPICAL HS PRN 11/23/21 11/23/21 History Multivitamins, Thera [Multivitamin 1 tab PO DAILY 11/23/21 11/23/21 History (formulary)] Rosuvastatin [Crestor] 20 mg PO DAILY 11/23/21 11/23/21 History Semaglutide [Ozempic] 1 mg SQ TOUSSAINT 11/23/21 11/23/21 History Allergies Allergy/AdvReac Type Severity Reaction Status Date / Time No Known Allergies Allergy Verified 11/23/21 13:08 Physical Exam Vitals: Vital Signs Temp Pulse Resp BP Pulse Ox 11/23/21 12:00 71 19 132/75 97 11/23/21 07:52 98.2 F 74 18 128/83 98 11/23/21 03:35 59 L 16 104/71 98 11/22/21 19:26 98.4 F 99 20 139/75 98 Intake and Output 11/22/21 11/23/21 11/23/21 22:59 06:59 14:59 Other: Weight 150.593 kg Results 11/23/21 04:10 11/23/21 04:10 Cardiac Enzymes 11/22/21 11/22/21 11/23/21 Range/Units 22:11 22:11 00:46 AST 52 (17-59) U/L Troponin I <0.012 <0.012 (0.000-0.034) ng/mL 11/23/21 Range/Units 04:10 AST (17-59) U/L Troponin I <0.012 (0.000-0.034) ng/mL Coagulation 11/22/21 Range/Units 22:11 PT 11.2 (9.0-12.0) sec APTT 27.4 (22.0-30.0) sec CBC 11/22/21 11/23/21 Range/Units 22:11 04:10 WBC 9.0 7.7 (3.8-10.6) k/uL RBC 4.86 4.76 (4.30-5.90) m/uL Hgb 14.6 14.3 (13.0-17.5) gm/dL Hct 42.4 41.7 (39.0-53.0) % Plt Count 277 266 (150-450) k/uL Comprehensive Metabolic Panel 11/22/21 11/23/21 Range/Units 22:11 04:10 Sodium 138 139 (137-145) mmol/L Potassium 3.8 4.1 (3.5-5.1) mmol/L Chloride 101 101 (98-107) mmol/L Carbon Dioxide 23 27 (22-30) mmol/L BUN 15 13 (9-20) mg/dL Creatinine 0.81 0.80 (0.66-1.25) mg/dL Glucose 242 H 131 H (74-99) mg/dL Calcium 8.9 8.6 (8.4-10.2) mg/dL AST 52 (17-59) U/L ALT 58 H (4-49) U/L Alkaline Phosphatase 57 (38-126) U/L Total Protein 6.8 (6.3-8.2) g/dL Albumin 4.3 (3.5-5.0) g/dL Current Medications Generic Name Dose Route Start Last Admin Trade Name Freq PRN Reason Stop Dose Admin Amlodipine Besylate 10 mg 11/23/21 21:00 Amlodipine 10 Mg Tab PO HS ENRIQUE Aspirin 81 mg 11/23/21 09:00 11/23/21 08:37 Aspirin 81 Mg PO 81 mg DAILY ENRIQUE Administration Atorvastatin Calcium 40 mg 11/23/21 21:00 Atorvastatin 40 Mg Tab PO HS ENRIQUE Clopidogrel Bisulfate 75 mg 11/23/21 09:00 11/23/21 08:37 Clopidogrel 75 Mg Tab PO 75 mg DAILY ENRIQUE Administration HCTZ/Losartan Potassium 2 each 11/23/21 21:00 Losartan-Hctz 50-12.5 Mg 1 Each Tab PO HS ENRIQUE Insulin Aspart 0 unit 11/23/21 07:30 11/23/21 12:43 Insulin Aspart (Novolog) 100 Unit/Ml Vial SQ Not Given ACHS [facility] Protocol Losartan Potassium 50 mg 11/23/21 21:00 Losartan 50 Mg Tab PO HS ENRIQUE Miscellaneous Information 1 each 11/22/21 21:49 Rx Info: Iv Contrast Was Given 1 Each Misc MISCELLANE 11/24/21 21:50 DAILY PRN Per Protocol Morphine Sulfate 4 mg 11/22/21 23:55 11/23/21 03:19 Morphine Sulfate 4 Mg/Ml Syringe IV 4 mg Q4HR PRN Administration Severe Pain (Scale 7 to 10) Naloxone HCl 0.2 mg 11/22/21 23:55 Naloxone 0.4 Mg/Ml 1 Ml Vial IV Q2M PRN Opioid Reversal Rivaroxaban 20 mg 11/23/21 09:00 11/23/21 08:37 Rivaroxaban 20 Mg Tab PO 20 mg DAILY ENRIQUE Administration Protocol Intake and Output 11/22/21 11/23/21 11/23/21 22:59 06:59 14:59 Other: Weight 150.593 kg 11/23/21 04:10 11/23/21 04:10
--- NOTE | 2021-11-23 15:12 | P.DS ---
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 Patient comes in for evaluation of sudden onset right-sided chest pain. He reports that all started as right shoulder pain about 4 days ago that gets better with certain positioning of his arm usually involves elevating his arm a little bit. However today while at work he suddenly experienced right-sided chest pain with worsening of his right shoulder pain not associated with any nausea vomiting denies any profuse sweating palpitations or shortness of breath he describes the pain as sharp which reminded him of his multiple blood clots that he got about 10 years ago as he had similar presentation of severe pain in his right shoulder. He grew concerned and decided to come into the hospital for evaluation denies any recent hospital stay or prolonged travel. Denies any changes in his medications. He claims to be compliant with his blood thinners. Denies any GI bleeding. In the ED his CT angiogram was negative for acute PE. The patient was evaluated by cardiology and they deemed his chest pain to be musculoskeletal in nature, clear time for discharge to follow up as an outpatient. Patient seen and examined at bedside. Vital signs reviewed and stable. General: [nontoxic], [no distress], [appears at stated age] Derm: [warm], [dry] Head: [atraumatic], [normocephalic], [symmetric] Eyes: [EOMI], [no lid lag], [anicteric sclera] Mouth: [no lip lesion], [mucus membranes moist] Cardiovascular: [S1S2 reg], [no murmur] Lungs: [CTA bilateral], [no rhonchi, no rales] , [no accessory muscle use] Abdominal: [soft], [ nontender to palpation], [no guarding], [no appreciable organomegaly] Ext: [no gross muscle atrophy], [no edema], [no contractures] Neuro: [ CN II-XI grossly intact], [no focal neuro deficits] Psych: [Alert], [oriented], [appropriate affect] A total of 50 minutes of time were spent preparing this complex discharge summary. Patient Condition at Discharge: Stable Plan - Discharge Summary New Discharge Prescriptions: Continue Rivaroxaban [Xarelto] 20 mg PO DAILY Insulin Degludec [Tresiba Flextouch U-200 Pen] 70 unit SQ HS amLODIPine [Norvasc] 10 mg PO HS Olmesartan/Hydrochlorothiazide [Olmesartan/Hydrochlorothiazide 40-25 MG] 1 tab PO HS Escitalopram [Lexapro] 20 mg PO DAILY Multivitamins, Thera [Multivitamin (formulary)] 1 tab PO DAILY Rosuvastatin [Crestor] 20 mg PO DAILY Semaglutide [Ozempic] 1 mg SQ TOUSSAINT Adapalene [Adapalene 0.1% Cream] 1 applic TOPICAL HS PRN PRN Reason: face Discharge Medication List Rivaroxaban [Xarelto] 20 mg PO DAILY 06/14/16 [History] Escitalopram [Lexapro] 20 mg PO DAILY 10/31/19 [History] Insulin Degludec [Tresiba Flextouch U-200 Pen] 70 unit SQ HS 10/31/19 [History] Olmesartan/Hydrochlorothiazide [Olmesartan/Hydrochlorothiazide 40-25 MG] 1 tab PO HS 10/31/19 [History] amLODIPine [Norvasc] 10 mg PO HS 10/31/19 [History] Adapalene [Adapalene 0.1% Cream] 1 applic TOPICAL HS PRN 11/23/21 [History] Multivitamins, Thera [Multivitamin (formulary)] 1 tab PO DAILY 11/23/21 [History] Rosuvastatin [Crestor] 20 mg PO DAILY 11/23/21 [History] Semaglutide [Ozempic] 1 mg SQ TOUSSAINT 11/23/21 [History] Follow up Appointment(s)/Referral(s): Farnaz Luo DO [Primary Care Provider] - 1-2 days Discharge Disposition: HOME SELF-CARE
[2021-11-23 16:23] LABS: Chol/HDL Ratio 3.27 Ratio
[2021-11-23 17:45] VITALS: BP 146/86; PULSE 80; TEMP 97.6
[2021-11-23] MEDS ORDERED: LOSARTAN-HCTZ 50-12.5 MG 1 EACH TAB PO SCH (21:00)
[2021-11-23] MEDS ORDERED: LOSARTAN 50 MG TAB PO SCH (21:00)
[2021-11-23] MEDS ORDERED: ATORVASTATIN 40 MG TAB PO SCH (21:00)
[2021-11-23] MEDS ORDERED: amLODIPine 10 MG TAB PO SCH (21:00)
== END 2021-11-23 17:52 | disposition home or self-care (01) ==
LOC: EC 19:08 → 6NMEDSUR 23:55
PROVIDERS: ADMIT Internal Medicine; ATTEND Internal Medicine
DX: R07.89 Other chest pain (principal); E11.9 Type 2 diabetes mellitus without complications; I10 Essential (primary) hypertension; M25.511 Pain in right shoulder; M79.601 Pain in right arm; F32.A Depression, unspecified; F41.9 Anxiety disorder, unspecified; F40.240 Claustrophobia; R06.09 Other forms of dyspnea; Z79.01 Long term (current) use of anticoagulants; Z79.4 Long term (current) use of insulin; Z79.899 Other long term (current) drug therapy; Z86.718 Personal history of other venous thrombosis and embolism; Z86.73 Personal history of transient ischemic attack (TIA), and cerebral infarction without residual deficits; Z86.711 Personal history of pulmonary embolism; Z98.1 Arthrodesis status; Z98.890 Other specified postprocedural states
CPT/HCPCS: 96376; 96374; 99285; 36415; 93005; 85379; 83880; 80061; 80053; 80048; 83690; 83735; 84484 ×2; 85025 ×2; 85610; 85730; 83036; 71275; G0378; J2270 ×2; Q9967

== ENCOUNTER 2023-03-06 14:10 | Emergency (ER) | payer MEDICARE ==
[2023-03-06] MEDS: HYDROmorphone 1 MG/ML 1 ML SYRINGE IVP STA ×2 (15:34→18:30)
[2023-03-06 16:03] LABS: ALT 24 U/L (4-49); AST 30 U/L (17-59); African American GFR (CKD) >90 (>60 ml/min/1.73 sqM); Albumin 4.2 g/dL (3.5-5.0); Alkaline Phosphatase 56 U/L (38-126); Anion Gap 9 mmol/L; Blood Urea Nitrogen 18 mg/dL (9-20); C Reactive Protein <0.5 mg/dL (<1.0); Calcium 9.1 mg/dL (8.4-10.2); Carbon Dioxide 23 mmol/L (22-30); Chloride 108 mmol/L (98-107); Creatine Kinase 244 U/L (55-170); Glucose 128 mg/dL (74-99); Non-African American GFR(CKD) >90 (>60 ml/min/1.73 sqM); Potassium 4.1 mmol/L (3.5-5.1); Sodium 140 mmol/L (137-145); Total Bilirubin 0.4 mg/dL (0.2-1.3); Total Protein 6.9 g/dL (6.3-8.2)
[2023-03-06 16:05] LABS: Appearance,Urine Clear (Clear); Bilirubin,Urine Negative (Negative); Blood,Urine Negative (Negative); Color,Urine Light Yellow; Glucose,Urine (UA) Negative (Negative); Ketones,Urine Negative (Negative); Leukocyte Esterase,Urine Negative (Negative); Nitrite,Urine Negative (Negative); Protein,Urine Negative (Negative); Specific Gravity,Urine 1.021 (1.001-1.035); Urobilinogen,Urine <2.0 mg/dL (<2.0)
[2023-03-06 16:16] LABS: Basophils # (A) 0.1 k/uL (0-0.2); Basophils % (A) 1 %; Eosinophils # (A) 0.3 k/uL (0-0.7); Eosinophils % (A) 4 %; HCT 42.5 % (39.0-53.0); HGB 14.2 gm/dL (13.0-17.5); Lymphocytes # (A) 1.9 k/uL (1.0-4.8); Lymphocytes % (A) 22 %; MCH 29.3 pg (25.0-35.0); MCHC 33.4 g/dL (31.0-37.0); MCV 87.6 fL (80.0-100.0); Mean Platelet Volume 7.3; Monocytes # (A) 0.5 k/uL (0-1.0); Monocytes % (A) 6 %; Neutrophils # (A) 5.7 k/uL (1.3-7.7); Neutrophils % (A) 67 %; Platelet Count 321 k/uL (150-450); RBC 4.85 m/uL (4.30-5.90); WBC 8.6 k/uL (3.8-10.6)
[2023-03-06] MEDS: ORPHENADRINE 30 MG/ML 2 ML VIAL IM STA (18:01)
[2023-03-06 19:30] VITALS: TEMP 97.8
[2023-03-06] MEDS: KETOROLAC 15 MG/ML 1 ML VIAL IVP STA (19:43)
--- NOTE | 2023-03-06 21:16 | CT ---
EXAM: CT Pelvis With Intravenous Contrast CLINICAL HISTORY: CT Reason: right pelvis/hip pain TECHNIQUE: Axial computed tomography images of the pelvis with intravenous contrast. CTDI is 28.2 mGy and DLP is 1324 mGy-cm. This CT exam was performed using one or more of the following dose reduction techniques: automated exposure control, adjustment of the mA and/or kV according to patient size, and/or use of iterative reconstruction technique. COMPARISON: No relevant prior studies available. FINDINGS: Bowel: Diverticulosis of the lower left and sigmoid colon without evidence of acute diverticulitis. The appendix is normal. No obstruction. Appendix: See above. Intraperitoneal space: Unremarkable. No free air. No significant fluid collection. Bladder: Unremarkable. No mass. Reproductive: Unremarkable as visualized. Bones/joints: Moderate degenerative disc disease and facet arthrosis in the lower lumbar spine and lumbosacral junction. Small enthesophytes on the ischial tuberosities bilaterally. Mild narrowing and osteophytosis of both hip joints. No acute fracture or dislocation is seen. Soft tissues: Unremarkable. Vasculature: The abdominal aorta is mildly calcified but nondilated. Lymph nodes: Unremarkable. No enlarged lymph nodes. IMPRESSION: 1. Mild narrowing and osteophytosis of both hip joints. No acute fracture or dislocation is seen. 2. Diverticulosis of the lower left and sigmoid colon without evidence of acute diverticulitis. The appendix is normal.
--- NOTE | 2023-03-06 21:18 | CT ---
EXAM: CT Right Lower Extremity With Intravenous Contrast, Hip CLINICAL HISTORY: CT Reason: right pelvis/hip pain TECHNIQUE: Axial computed tomography images of the right hip with intravenous contrast. CTDI is 20.2 mGy and DLP is 1321.4 mGy-cm. This CT exam was performed using one or more of the following dose reduction techniques: automated exposure control, adjustment of the mA and/or kV according to patient size, and/or use of iterative reconstruction technique. COMPARISON: No relevant prior studies available. FINDINGS: Bones/joints: The proximal right femur is intact and normally positioned with respect to the acetabulum. There is mild narrowing and osteophytosis of the right hip joint. There is a lucency through the posterior wall osteophyte which is a smooth chronic appearance. No acute fracture or dislocation is seen. Moderate degenerative changes in the lower lumbar spine and lumbar sacral junction. Soft tissues: Unremarkable. No abnormal contrast enhancement. Appendix: The appendix is normal. Other findings: The pelvis is intact. IMPRESSION: The proximal right femur is intact and normally positioned with respect to the acetabulum. There is mild narrowing and osteophytosis of the right hip joint. There is a lucency through the posterior wall osteophyte which is a smooth chronic appearance. No acute fracture or dislocation is seen.
[2023-03-06 21:56] VITALS: BP 116/80; PULSE 78; RESP 18
--- NOTE | 2023-04-05 10:11 | ED ---
Extremity Problem HPI - General Chief complaint: Extremity Problem,Nontraumatic Stated complaint: Groin pain Time Seen by Provider: 03/06/23 14:27 Source: patient, family Mode of arrival: ambulatory Limitations: no limitations - History of Present Illness Initial comments: This patient is a 57-year-old man who presents for evaluation of pain to the right hip and groin. Patient states that the pain came on acutely. He has sharp intense spasms of pain. He did not note any injury or trauma to the area. He denies lifting or twisting type of injury. Patient has not noted any accompanying symptoms. No fever or chills. No chest pain, cough, dyspnea. He has not noted any swelling or pain distal. No urinary or bowel symptoms MD Complaint: extremity pain -: hour(s) Location: right, lower extremity History of Same: No -: Yes myalgia, Yes arthralgia Radiation: none Quality: sharp Consistency: intermittent Improves with: nothing Worsens with: nothing Associated Symptoms: denies other symptoms - Related Data Home Medications Medication Instructions Recorded Confirmed Rivaroxaban [Xarelto] 20 mg PO HS 06/14/16 03/06/23 Escitalopram [Lexapro] 20 mg PO DAILY 10/31/19 03/06/23 Insulin Degludec [Tresiba 68 unit SQ HS 10/31/19 03/06/23 Flextouch U-200 Pen] Olmesartan/Hydrochlorothiazide 1 tab PO DAILY 10/31/19 03/06/23 [Olmesartan/Hydrochlorothiazide 40-25 MG] amLODIPine [Norvasc] 10 mg PO DAILY 10/31/19 03/06/23 Rosuvastatin [Crestor] 20 mg PO DAILY 11/23/21 03/06/23 Celecoxib [CeleBREX] 200 mg PO DAILY 03/06/23 03/06/23 Cyclobenzaprine [Flexeril] 10 mg PO TID PRN 03/06/23 03/06/23 Tirzepatide [Mounjaro] 5 mg SQ WILKINS 03/06/23 03/06/23 Allergies Allergy/AdvReac Type Severity Reaction Status Date / Time No Known Allergies Allergy Verified 03/06/23 20:53 Review of Systems ROS Statement: Those systems with pertinent positive or pertinent negative responses have been documented in the HPI. ROS Other: All systems not noted in ROS Statement are negative. Constitutional: Denies: fever, chills Respiratory: Denies: cough, dyspnea Cardiovascular: Denies: chest pain, palpitations Gastrointestinal: Denies: abdominal pain, nausea, vomiting, diarrhea, constipation Genitourinary: Denies: dysuria, hematuria, testicular pain, testicular mass Musculoskeletal: Denies: back pain Skin: Denies: rash Neurological: Denies: headache, weakness, numbness Past Medical History Past Medical History: Diabetes Mellitus, Deep Vein Thrombosis (DVT), Pulmonary Embolus (PE) Additional Past Medical History / Comment(s): blood clots History of Any Multi-Drug Resistant Organisms: None Reported Past Surgical History: Orthopedic Surgery Additional Past Surgical History / Comment(s): L ankle fractures/fusion, R heel shattered/fused, colonoscopy. Past Anesthesia/Blood Transfusion Reactions: No Reported Reaction Additional Past Anesthesia/Blood Transfusion Reaction / Comment(s): Pt has clausterphobia. Past Psychological History: Anxiety, Depression Smoking Status: Never smoker Past Alcohol Use History: None Reported Past Drug Use History: None Reported - Past Family History Father History Unknown: Yes Additional Family Medical History / Comment(s): Pt does not know father's hx- raised by grandparents. Mother History Unknown: Yes Additional Family Medical History / Comment(s): Pt does not know mother's hx- raised by grandparents. Grandparents Family Medical History: No Reported History Additional Family Medical History / Comment(s): Grandparents were healthy General Exam Limitations: no limitations General appearance: alert, in no apparent distress Head exam: Present: atraumatic, normocephalic Eye exam: Present: normal appearance. Absent: scleral icterus, conjunctival injection Neck exam: Present: normal inspection Respiratory exam: Present: normal lung sounds bilaterally. Absent: respiratory distress, wheezes, rales, rhonchi, stridor, accessory muscle use Cardiovascular Exam: Present: regular rate, normal rhythm, normal heart sounds. Absent: systolic murmur, diastolic murmur, rubs, gallop GI/Abdominal exam: Present: soft. Absent: distended, tenderness, guarding, rebound, rigid, mass Extremities exam: Present: normal inspection, full ROM, normal capillary refill. Absent: tenderness, pedal edema, calf tenderness Back exam: Present: normal inspection. Absent: CVA tenderness (R), CVA tenderness (L), vertebral tenderness Neurological exam: Present: alert. Absent: motor sensory deficit Skin exam: Present: warm, dry, intact, normal color. Absent: rash Course Vital Signs 03/06/23 03/06/23 03/06/23 14:19 17:00 19:00 Temperature 98.2 F 97.8 F Pulse Rate 74 78 74 Respiratory 16 18 16 Rate Blood Pressure 211/69 145/78 112/70 O2 Sat by Pulse 98 98 97 Oximetry 03/06/23 21:43 Temperature Pulse Rate 78 Respiratory 18 Rate Blood Pressure 116/80 O2 Sat by Pulse 100 Oximetry Medical Decision Making - Medical Decision Making The patient had a right hip x-ray which I interpreted as negative for fracture or dislocation The patient had CT scan of the pelvis and hip that I interpreted as negative for acute bony injury. Was pt. sent in by a medical professional or institution (, [facility], [employer], urgent care, hospital, or long term...) When possible be specific @ -[No] Did you speak to anyone other than the patient for history (EMS, parent, family, police, friend...)? What history was obtained from this source @ -[No] Did you review nursing and triage notes (agree or disagree)? Why? @ -[I reviewed and agree with nursing and triage notes] Were old charts reviewed (outside hosp., previous admission, EMS record, old EKG , old radiological studies, urgent care reports/EKG's, long term records)? Report findings @ -[No old charts were reviewed] Differential Diagnosis (chest pain, altered mental status, abdominal pain women, abdominal pain men, vaginal bleeding, weakness, fever, dyspnea, syncope, headache, dizziness, GI bleed, back pain, seizure, CVA, palpatations, mental health, musculoskeletal)? @ -[Differential Musculoskeletal Muscular strain, contusion, ligament sprain, fracture, arthritis, septic arthri tis, bursitis, cellulitis, muscle spasm, nerve compression, DVT, arterial occlusion, herpes zoster, electrolyte abnormality, tumor.... This is not meant to be in all inclusive list EKG interpreted by me (3pts min.). @ -[As above] X-rays interpreted by me (1pt min.). @ -[I interpreted as above CT interpreted by me (1pt min.). @ -[I interpreted as above U/S interpreted by me (1pt. min.). @ -[None done] What testing was considered but not performed or refused? (CT, X-rays, U/S, labs)? Why? @ -[None] What meds were considered but not given or refused? Why? @ -[None] Did you discuss the management of the patient with other professionals (professionals i.e. , PA, [employer], lab, RT, psych nurse, social media manager, medical billing service, teacher, corporate officer, high risk case manager)? Give summary @ -[No] Was smoking cessation discussed for >3mins.? @ -[No] Was critical care preformed (if so, how long)? @ -[No] Were there social determinants of health that impacted care today? How? (Homelessness, low income, unemployed, alcoholism, drug addiction, transportation, low edu. Level, literacy, decrease access to med. care, fpc, rehab)? @ -[No] Was there de-escalation of care discussed even if they declined (Discuss DNR or withdrawal of care, Hospice)? DNR status @ -[No] What co-morbidities impacted this encounter? (DM, HTN, Smoking, COPD, CAD, Cancer, CVA, ARF, Chemo, Hep., AIDS, mental health diagnosis, sleep apnea, morbid obesity)? @ -[None] Was patient admitted / discharged? Hospital course, mention meds given and route, prescriptions, significant lab abnormalities, going to OR and other pertinent info. @ -Patient is 57-year-old man with acute onset of right hip/groin pain. The pain is present without any obvious physical exam findings. There is good arterial flow distal. There is no exam evidence of DVT. The patient has a very broad workup as he was experiencing severe pain without obvious cause. In addition the patient did not have any trauma. The pain does appear to be musculoskeletal in nature and he did finally receive adequate pain relief. Discussed appropriate further care and follow-up as well as return parameters Undiagnosed new problem with uncertain prognosis? @ -[Acute right hip pain Drug Therapy requiring intensive monitoring for toxicity (Heparin, Nitro, Insulin, Cardizem)? @ -[No] Were any procedures done? @ -[No] Diagnosis/symptom? @ -[Acute right hip pain Acute, or Chronic, or Acute on Chronic? @ -[Acute Uncomplicated (without systemic symptoms) or Complicated (systemic symptoms)? @ -[Uncomplicated Side effects of treatment? @ -[No] Exacerbation, Progression, or Severe Exacerbation? @ -[No] Poses a threat to life or bodily function? How? (Chest pain, [place], MA, pneumonia, PE, COPD, DKA, ARF, appy, cholecystitis, CVA, Diverticulitis, Homicidal, Wilkins icidal, threat to staff... and all critical care pts) @ -[No] - Lab Data Result diagrams: 03/06/23 15:30 03/06/23 15:30 Lab Results 03/06/23 03/06/23 03/06/23 Range/Units 15:30 15:30 15:30 WBC 8.6 (3.8-10.6) k/uL RBC 4.85 (4.30-5.90) m/uL Hgb 14.2 (13.0-17.5) gm/dL Hct 42.5 (39.0-53.0) % MCV 87.6 (80.0-100.0) fL MCH 29.3 (25.0-35.0) pg MCHC 33.4 (31.0-37.0) g/dL RDW 13.0 (11.5-15.5) % Plt Count 321 (150-450) k/uL MPV 7.3 Neutrophils % 67 % Lymphocytes % 22 % Monocytes % 6 % Eosinophils % 4 % Basophils % 1 % Neutrophils # 5.7 (1.3-7.7) k/uL Lymphocytes # 1.9 (1.0-4.8) k/uL Monocytes # 0.5 (0-1.0) k/uL Eosinophils # 0.3 (0-0.7) k/uL Basophils # 0.1 (0-0.2) k/uL D-Dimer 0.32 (<0.60) mg/L FEU Sodium (137-145) mmol/L Potassium (3.5-5.1) mmol/L Chloride (98-107) mmol/L Carbon Dioxide (22-30) mmol/L Anion Gap mmol/L BUN (9-20) mg/dL Creatinine (0.66-1.25) mg/dL Est GFR (CKD-EPI)AfAm (>60 ml/min/1.73 sqM) Est GFR (CKD-EPI)NonAf (>60 ml/min/1.73 sqM) Glucose (74-99) mg/dL Calcium (8.4-10.2) mg/dL Total Bilirubin (0.2-1.3) mg/dL AST (17-59) U/L ALT (4-49) U/L Alkaline Phosphatase (38-126) U/L Creatine Kinase (55-170) U/L CK-MB (CK-2) (0.0-3.4) ng/mL C-Reactive Protein (<1.0) mg/dL Total Protein (6.3-8.2) g/dL Albumin (3.5-5.0) g/dL Urine Color Light Yellow Urine Appearance Clear (Clear) Urine pH 7.0 (5.0-8.0) Ur Specific [place] 1.021 (1.001-1.035) Urine Protein Negative (Negative) Urine Glucose (UA) Negative (Negative) Urine Ketones Negative (Negative) Urine Blood Negative (Negative) Urine Nitrite Negative (Negative) Urine Bilirubin Negative (Negative) Urine Urobilinogen <2.0 (<2.0) mg/dL Ur Leukocyte Esterase Negative (Negative) 03/06/23 03/06/23 Range/Units 15:30 15:30 WBC (3.8-10.6) k/uL RBC (4.30-5.90) m/uL Hgb (13.0-17.5) gm/dL Hct (39.0-53.0) % MCV (80.0-100.0) fL MCH (25.0-35.0) pg MCHC (31.0-37.0) g/dL RDW (11.5-15.5) % Plt Count (150-450) k/uL MPV Neutrophils % % Lymphocytes % % Monocytes % % Eosinophils % % Basophils % % Neutrophils # (1.3-7.7) k/uL Lymphocytes # (1.0-4.8) k/uL Monocytes # (0-1.0) k/uL Eosinophils # (0-0.7) k/uL Basophils # (0-0.2) k/uL D-Dimer (<0.60) mg/L FEU Sodium 140 (137-145) mmol/L Potassium 4.1 (3.5-5.1) mmol/L Chloride 108 H (98-107) mmol/L Carbon Dioxide 23 (22-30) mmol/L Anion Gap 9 mmol/L BUN 18 (9-20) mg/dL Creatinine 0.90 (0.66-1.25) mg/dL Est GFR (CKD-EPI)AfAm >90 (>60 ml/min/1.73 sqM) Est GFR (CKD-EPI)NonAf >90 (>60 ml/min/1.73 sqM) Glucose 128 H (74-99) mg/dL Calcium 9.1 (8.4-10.2) mg/dL Total Bilirubin 0.4 (0.2-1.3) mg/dL AST 30 (17-59) U/L ALT 24 (4-49) U/L Alkaline Phosphatase 56 (38-126) U/L Creatine Kinase 244 H (55-170) U/L CK-MB (CK-2) 2.0 (0.0-3.4) ng/mL C-Reactive Protein <0.5 (<1.0) mg/dL Total Protein 6.9 (6.3-8.2) g/dL Albumin 4.2 (3.5-5.0) g/dL Urine Color Urine Appearance (Clear) Urine pH (5.0-8.0) Ur Specific [place] (1.001-1.035) Urine Protein (Negative) Urine Glucose (UA) (Negative) Urine Ketones (Negative) Urine Blood (Negative) Urine Nitrite (Negative) Urine Bilirubin (Negative) Urine Urobilinogen (<2.0) mg/dL Ur Leukocyte Esterase (Negative) Disposition Clinical Impression: Hip pain Disposition: HOME SELF-CARE Condition: Good Is patient prescribed a controlled substance at d/c from ED?: No Referrals: Farnaz Luo DO [Primary Care Provider] - 1-2 days
== END 2023-03-06 21:43 | disposition home or self-care (01) ==
LOC: EC 14:10
DX: M25.551 Pain in right hip (principal); E11.9 Type 2 diabetes mellitus without complications; F32.A Depression, unspecified; F41.9 Anxiety disorder, unspecified; Z79.4 Long term (current) use of insulin; Z79.85 Long-term (current) use of injectable non-insulin antidiabetic drugs; Z79.01 Long term (current) use of anticoagulants; Z79.899 Other long term (current) drug therapy; Z86.711 Personal history of pulmonary embolism; Z86.718 Personal history of other venous thrombosis and embolism
CPT/HCPCS: 36415; 85379; 80053; 82550; 82553; 85025; 86140; 81003; 72193; 73701; 99284; 96374; 96375; 96376; 96372; J2360; J1170; J1885; Q9967